=== PATIENT | female | born 1965 | race African-American/Black ===

== ENCOUNTER 2019-02-02 15:19 | Emergency (ER) | payer MEDICAID ==
[~2019-02-02] VITALS: Ht 154.9 cm; Wt 65.0 kg
[~2019-02-02 15:19] MED LIST: ALBU6.7H INH; AMLO5TAB4 PO; AMLO5TAB88 PO; ASPI-1393 PO; ATOR20TA PO; AZIT500T2 PO; CYAN10009 PO; GLIP10TA10 PO; HYDR25TA PO; LEVVL SUBCUT; LISI-604 PO; METF-414 PO; P20 PO
[2019-02-02] MEDS ORDERED: IBUPROFEN 600MG TABLET PO ONE (16:15)
[2019-02-02 16:44] LABS: BASOPHILS % 1.2 % (0.0-2.0); EOSINOPHILS % 1.4 % (0.0-5.0); HEMATOCRIT. 36.6 % (36.0-48.0); HEMOGLOBIN. 12.1 g/dL (12.0-16.0); LYMPHOCYTES % 35.9 % (20.0-50.0); MEAN CORPUSCULAR HEMOGLOBIN 30.9 pg (28.0-32.0); MEAN CORPUSCULAR VOLUME 93.7 fL (81.0-99.0); MEAN PLATELET VOLUME 11.1 fl (7.4-10.4); MONOCYTES % 9.2 % (2.0-8.0); NEUTROPHILS % 52.3 % (40.0-76.0); PLATELET 187 x1000/uL (130-400); RED BLOOD CELL COUNT 3.91 mill/uL (4.2-5.4)
[2019-02-02 16:50] LABS: CHLORIDE 109 mEq/L (98-107)
[2019-02-02 17:13] LABS: ETHANOL BLOOD 289 mg/dL
[2019-02-02 18:28] VITALS: BP 172/91
== END 2019-02-02 18:28 | disposition home or self-care (01) ==
LOC: ER 15:19
DX: S80.212A Abrasion, left knee, initial encounter (principal); F10.129 Alcohol abuse with intoxication, unspecified; J45.909 Unspecified asthma, uncomplicated; E11.9 Type 2 diabetes mellitus without complications; I10 Essential (primary) hypertension; Z79.82 Long term (current) use of aspirin; Z79.899 Other long term (current) drug therapy; V49.88XA Car occupant (driver) (passenger) injured in other specified transport accidents, initial encounter; Y93.89 Activity, other specified; Y92.89 Other specified places as the place of occurrence of the external cause; Y99.8 Other external cause status; Y90.8 Blood alcohol level of 240 mg/100 ml or more
CPT/HCPCS: 36415; 70486; 73130; 73560; 80320; 99284; G0480